=== PATIENT | female | born 1955 | race Caucasian/White ===

== ENCOUNTER → 2021-09-19 10:49 | Outpatient (CLI) | payer OTHER, SELFPAY ==
--- NOTE | 2021-09-19 | DI.MG.S_ITS ---
BILATERAL DIGITAL SCREENING MAMMOGRAM 3D/2D WITH CAD: 09/19/2021 CLINICAL: Routine screening. Personal history of left breast cancer. Family history of breast cancer. Comparison is made to exams dated: 07/07/2020 mammogram, 11/16/2019 mammogram, 11/11/2018 mammogram, and 10/25/2017 mammogram - outside facility. The tissue of both breasts is predominantly fatty. Current study was also evaluated with a Computer Aided Detection (CAD) system. No significant masses, calcifications, or other findings are seen in either breast. There has been no significant interval change. IMPRESSION: NEGATIVE There is no mammographic evidence of malignancy. A 1 year screening mammogram is recommended. This exam was interpreted at Station ID: [id number]. NOTE: For mammograms, a report in lay terms will be sent to the patient. Approximately 15% of breast malignancies will not be visualized mammographically. In the management of a palpable breast mass, a negative mammogram must not discourage biopsy of a clinically suspicious lesion. Electronically Signed By: Juan J Acosta M.D., jr/eloina:09/21/2021 11:04:01 letter sent: Normal Exam ACR BI-RADS Category 1: Negative 3341F
== END ==
PROVIDERS: PCP Family Medicine; Referring Provider Family Medicine; Visit Provider Family Medicine
DX: Z12.31 Encounter for screening mammogram for malignant neoplasm of breast (principal); Z80.3 Family history of malignant neoplasm of breast; Z85.3 Personal history of malignant neoplasm of breast
CPT/HCPCS: 77063; 77067

== ENCOUNTER → 2022-02-22 12:02 | Outpatient (CLI) | payer MEDICARE, OTHER, SELFPAY ==
[2022-02-22 19:15] LABS: Add Manual Diff / Slide Review NO; Basophils Absolute Auto 0 /uL (0-100); Basophils Percent Auto 0.8 % (0-2); Eosinophils Absolute Auto 100 /uL (0-450); Eosinophils Percent Auto 2.2 % (2-4); Hematocrit 37.8 % (36-46); Hemoglobin 12.4 g/dL (12.0-16.0); Lymphocytes Absolute Auto 2000 /uL (1100-4500); Lymphocytes Percent Auto 42.7 % (25-40); Mean Corpuscular HGB Conc 32.9 % (30-36); Mean Corpuscular Volume 94.3 fL (80-100); Monocytes Absolute Auto 400 /uL (0-900); Monocytes Percent Auto 8.6 % (3-14); Neutrophils Absolute Auto 2100 /uL (1500-7000); Neutrophils Percent Auto 45.7 % (50-75); Platelet Count 257 X10^3/uL (150-400); Red Blood Cell Count 4.01 X10^6/uL (4.0-5.2); White Blood Cell Count 4.6 X10^3/uL (4.5-11.0)
[2022-02-22 19:35] LABS: Alanine Aminotransferase 14 IU/L (<35); Albumin 4.7 g/dL (3.5-5.0); Albumin Globulin Ratio 1.5 (1.0-2.8); Alkaline Phosphatase 43 U/L (38-126); Aspartate Aminotransferase 25 IU/L (14-36); BUN Creatinine Ratio 27.7 (6-22); Bilirubin Total 0.6 mg/dL (0.2-1.3); Blood Urea Nitrogen 23 mg/dL (7-17); Calcium 9.9 mg/dL (8.4-10.2); Carbon Dioxide 29 mmol/L (22-32); Chloride 102 mmol/L (98-107); Cholesterol 241 mg/dL (140-199); Estimated Glomerular Filt Rate > 60 mL/min (>60); Globulin 3.1 g/dL (1.7-4.1); Glucose 87 mg/dL (80-110); HDL Cholesterol 91 mg/dL (40-60); HEMOLYSIS 27 (0-50); LDL Cholesterol Calculated 131 mg/dL (<100); Potassium 4.5 mmol/L (3.4-5.1); Sodium 138 mmol/L (137-145); Total Protein 7.8 g/dL (6.3-8.2); Triglycerides 95 mg/dL (35-150)
== END ==
PROVIDERS: PCP Family Medicine; Visit Provider Family Medicine
DX: Z13.6 Encounter for screening for cardiovascular disorders (principal); M54.50 Low back pain, unspecified; M85.80 Other specified disorders of bone density and structure, unspecified site; Z78.0 Asymptomatic menopausal state; G89.29 Other chronic pain; Z13.0 Encounter for screening for diseases of the blood and blood-forming organs and certain disorders involving the immune mechanism
CPT/HCPCS: 80053; 80061; 85025

== ENCOUNTER → 2022-05-13 11:08 | Outpatient (CLI) | payer MEDICARE, OTHER, SELFPAY | PROVIDERS: PCP Family Medicine; Referring Provider Family Medicine; Visit Provider Family Medicine | DX: Z13.820 Encounter for screening for osteoporosis (principal); M85.89 Other specified disorders of bone density and structure, multiple sites; Z78.0 Asymptomatic menopausal state; M54.50 Low back pain, unspecified; Z85.3 Personal history of malignant neoplasm of breast | CPT/HCPCS: 77080 ==

== ENCOUNTER → 2022-07-09 10:07 | Outpatient (CLI) | payer MEDICARE, OTHER, SELFPAY ==
--- NOTE | 2022-07-09 10:07 | DI.MRI.S_ITS ---
PROCEDURE: MR LUMBAR SPINE WO CON INDICATIONS: lumbar pain no response to pt etc TECHNIQUE: Noncontrast sagittal T1 spin echo and T2 fast echo, coronal T2, sagittal STIR, and T2 fast spin echo through the lumbar spine. COMPARISON: None. FINDINGS: Image quality: Excellent. Alignment and Curvature: No plain films are available for comparison, for numbering purposes. Thus, for the purposes of this examination, 5 lumbar type vertebral bodies will be presumed, as denoted on the montage panel. This should be confirmed and correlated with plain films, prior to any lumbar spinal intervention. Mild diffuse leftward curvature of the lower lumbar spine. 3 mm of retrolisthesis of L3 on L4. Bone Marrow: Marrow is of normal overall signal. No acute vertebral body compression fractures. Mild reactive signal throughout the endplates of the lumbar spine. Mild degenerative marrow edema adjacent to the L3-L4 and L4-L5 facet joints bilaterally. Spinal Cord: Conus medullaris terminates at the upper L2 level. Visualized cord demonstrates normal signal and size. Paraspinous Soft Tissues: No paravertebral masses. T12-L1: Normal appearance. L1-L2: Normal appearance. L2-L3: Mild disc desiccation and diffuse disc bulge. Mild facet and ligamentum flavum hypertrophy. Mild epidural lipomatosis. Mild canal stenosis. Mild bilateral foraminal stenosis. L3-L4: Mild disc height loss and desiccation. Mild diffuse disc bulge. Mild facet and ligamentum flavum hypertrophy. Mild epidural lipomatosis. Mild canal stenosis. Mild bilateral foraminal stenosis. L4-L5: Mild disc desiccation and disc height loss. Mild diffuse disc bulge. Mild facet and ligamentum flavum hypertrophy. Mild epidural lipomatosis. Mild canal stenosis. Mild bilateral foraminal stenosis. L5-S1: Mild disc desiccation and diffuse disc bulge. Mild bilateral facet hypertrophy. No significant canal stenosis. Mild bilateral foraminal stenosis. IMPRESSION: 1. Multilevel degenerative disc and facet disease, as well as ligamentum flavum hypertrophy and epidural lipomatosis. 2. Mild multilevel canal and foraminal stenoses. No neural impingement. 3. 5 lumbar type vertebral bodies were presumed for the current report. Plain films of the lumbar spine are recommended for confirmation, prior to any lumbar spinal intervention. Dictated by: Perry Barber M.D. on 07/09/2022 at 11:40 Transcribed by: WICHO on 07/09/2022 at 11:42 Approved by: Perry Barber M.D. on 07/09/2022 at 15:07
== END ==
PROVIDERS: PCP Family Medicine; Referring Provider Family Medicine; Visit Provider Family Medicine
DX: M51.36 Other intervertebral disc degeneration, lumbar region (principal); M51.37 Other intervertebral disc degeneration, lumbosacral region; M48.061 Spinal stenosis, lumbar region without neurogenic claudication; M48.07 Spinal stenosis, lumbosacral region; G89.29 Other chronic pain
CPT/HCPCS: 72148

== ENCOUNTER → 2022-09-21 14:04 | Outpatient (CLI) | payer MEDICARE, OTHER, SELFPAY ==
--- NOTE | 2022-09-21 14:07 | DI.RAD.S_ITS ---
PROCEDURE: XR LUMBAR SPINE MIN 4V INDICATIONS: low back pain TECHNIQUE: 5 views of the lumbar spine were acquired, including bilateral oblique views. COMPARISON: None. FINDINGS: Bones: 5 nonrib-bearing vertebrae are present. There is mild leftward curvature of the lumbar spine centered at L4. There is otherwise normal bony alignment. No vertebral body compression fractures. No suspicious bony lesions. Soft tissues: Overlying bowel gas pattern is normal. No suspicious soft tissue calcifications. Oblique images: No pars defects. IMPRESSION: No spondylolysis or spondylolisthesis. Dictated by: Kaur Way M.D. on 09/21/2022 at 15:48 Approved by: aKur Way M.D. on 09/21/2022 at 15:49
== END ==
PROVIDERS: PCP Family Medicine; Referring Provider Anesthesiology; Visit Provider Anesthesiology
DX: M47.816 Spondylosis without myelopathy or radiculopathy, lumbar region (principal); M54.50 Low back pain, unspecified; G89.29 Other chronic pain
CPT/HCPCS: 72110; 99214

== ENCOUNTER → 2022-10-02 10:33 | Outpatient (CLI) | payer MEDICARE, OTHER, SELFPAY ==
--- NOTE | 2022-10-02 10:36 | DI.MG.S_ITS ---
BILATERAL DIGITAL SCREENING MAMMOGRAM 3D/2D WITH CAD: 10/02/2022 CLINICAL: Routine screening. Personal history of left breast cancer. Family history of breast cancer. Comparison is made to exams dated: 09/19/2021 mammogram - [facility], 07/07/2020 mammogram, 10/25/2017 mammogram, and 11/11/2018 mammogram - outside facility. Both breasts are heterogeneously dense, which may obscure small masses (category c / 51-75% glandular tissue). Current study was also evaluated with a Computer Aided Detection (CAD) system. There are benign post operative findings in the left breast. No significant masses, calcifications, or other findings are seen in either breast. There has been no significant interval change. IMPRESSION: BENIGN There is no mammographic evidence of malignancy. A 1 year screening mammogram is recommended. This exam was interpreted at Station ID: [id number]. NOTE: For mammograms, a report in lay terms will be sent to the patient. Approximately 15% of breast malignancies will not be visualized mammographically. In the management of a palpable breast mass, a negative mammogram must not discourage biopsy of a clinically suspicious lesion. Electronically Signed By: Carroll napier/eloina:10/04/2022 08:06:17 letter sent: Normal Exam ACR BI-RADS Category 2: Benign Finding(s) 3342F
== END ==
PROVIDERS: PCP Family Medicine; Referring Provider Family Medicine; Visit Provider Family Medicine
DX: Z12.31 Encounter for screening mammogram for malignant neoplasm of breast (principal); Z85.3 Personal history of malignant neoplasm of breast; Z80.3 Family history of malignant neoplasm of breast
CPT/HCPCS: 77063; 77067

== ENCOUNTER → 2023-10-20 12:10 | Outpatient (CLI) | payer MEDICARE, OTHER, SELFPAY ==
--- NOTE | 2023-10-20 12:11 | DI.MG.S_ITS ---
BILATERAL DIGITAL SCREENING MAMMOGRAM 3D/2D WITH CAD: 10/20/2023 CLINICAL: Routine screening. Personal history of left breast cancer. Family history of breast cancer. Comparison is made to exams dated: 10/02/2022 mammogram, 09/19/2021 mammogram - [facility], and 07/07/2020 mammogram - outside facility. Both breasts are heterogeneously dense, which may obscure small masses (category c / 51-75% glandular tissue). Current study was also evaluated with a Computer Aided Detection (CAD) system. There are benign post operative findings in the left breast. There is an asymmetry in the left breast posterior depth upper region seen on the mediolateral oblique view only. No other significant masses, calcifications, or other findings are seen in either breast. IMPRESSION: INCOMPLETE: NEEDS ADDITIONAL IMAGING EVALUATION Left breast upper posterior asymmetry seen on MLO view only. A diagnostic mammogram and ultrasound is recommended. This exam was interpreted at Station ID: [id number]. NOTE: For mammograms, a report in lay terms will be sent to the patient. Approximately 15% of breast malignancies will not be visualized mammographically. In the management of a palpable breast mass, a negative mammogram must not discourage biopsy of a clinically suspicious lesion. Electronically Signed By: Antonella Garay M.D., PH.D eb/:10/20/2023 15:30:13 letter sent: Additional Imaging Needed ACR BI-RADS Category 0: Incomplete 3340F
== END ==
PROVIDERS: PCP Family Medicine; Referring Provider Family Medicine; Visit Provider Family Medicine
DX: Z12.31 Encounter for screening mammogram for malignant neoplasm of breast (principal); Z85.3 Personal history of malignant neoplasm of breast; Z80.3 Family history of malignant neoplasm of breast
CPT/HCPCS: 77063; 77067

== ENCOUNTER → 2023-11-14 08:50 | Outpatient (CLI) | payer MEDICARE, OTHER, SELFPAY ==
--- NOTE | 2023-11-14 | DI.MG.S_ITS ---
UNILATERAL LEFT DIGITAL DIAGNOSTIC MAMMOGRAM 3D/2D WITH ADDITIONAL VIEWS: 11/14/2023 CLINICAL: Additional evaluation requested from prior study. Comparison is made to exams dated: 10/20/2023 mammogram, 10/02/2022 mammogram, and 09/19/2021 mammogram - [facility]. The left breast is heterogeneously dense, which may obscure small masses (category c / 51-75% glandular tissue). There is a focal asymmetry in the left breast at 3 o'clock posterior depth. This is seen in additional views. No other significant masses or calcifications are seen in the breast. IMPRESSION: INCOMPLETE: NEEDS ADDITIONAL IMAGING EVALUATION The focal asymmetry in the left breast is indeterminate. A targeted ultrasound of the left breast is recommended and will be performed immediately following this exam. This exam was interpreted at Station ID: [id number]. NOTE: For mammograms, a report in lay terms will be sent to the patient. Approximately 15% of breast malignancies will not be visualized mammographically. In the management of a palpable breast mass, a negative mammogram must not discourage biopsy of a clinically suspicious lesion. Electronically Signed By: Kaur Way M.D. lk/:11/14/2023 09:59:20 ACR BI-RADS Category 0: Incomplete 3340F
--- NOTE | 2023-11-14 08:51 | DI.US.S_ITS ---
LIMITED ULTRASOUND OF LEFT BREAST: 11/14/2023 CLINICAL: Patient returns today to evaluate a focal asymmetry in the left breast. Comparison is made to exams dated: 11/14/2023 mammogram, 10/20/2023 mammogram, 10/02/2022 mammogram, 09/19/2021 mammogram - [facility], 07/07/2020 mammogram, and 11/16/2019 mammogram - outside facility. Color flow and real-time ultrasound of the left breast 2 o'clock region were performed on the areas of interest. Rushing scale images of the real-time examination were reviewed. There is a 0.7 cm x 0.6 cm x 0.6 cm irregular mass in the left breast at 3 o'clock posterior depth. This irregular mass is hypoechoic. This correlates with mammography findings. The left axilla was interogated and normal appearing lymph nodes are visualized. IMPRESSION: SUSPICIOUS OF MALIGNANCY No left axillary adenopathy. The 0.7 cm x 0.6 cm x 0.6 cm irregular mass in the left breast is at a moderate suspicion for malignancy. A vacuum assisted ultrasound biopsy is recommended. This exam was interpreted at Station ID: [id number]. SUMMARY: This was discussed with the patient by the radiologist at the time of the exam. Electronically Signed By: Kaur tinsley/:11/17/2023 09:57:38 Entry: - 11/17/2023 09:57:38 letter sent: Biopsy Required Ultrasound BI-RADS: 4b Moderate suspicion of malignancy
== END ==
LOC: MAMMO 08:50
PROVIDERS: PCP Family Medicine; Referring Provider Family Medicine; Visit Provider Family Medicine
DX: R92.8 Other abnormal and inconclusive findings on diagnostic imaging of breast (principal); N63.25 Unspecified lump in the left breast, overlapping quadrants; Z85.3 Personal history of malignant neoplasm of breast
CPT/HCPCS: 76642; 77065; G0279

== ENCOUNTER → 2023-11-24 11:08 | Outpatient (CLI) | payer MEDICARE, OTHER, SELFPAY ==
--- NOTE | 2023-11-24 | PATH_ITS ---
[facility] Accession Number: [id number] No. of containers..01 Tissue . 01 Material submitted: . breast - LEFT BREAST MASS 2:00 7 CM FN . 01 Diagnosis: A. Left Breast Mass, 2 o'clock, 7 cm from the Nipple, Biopsy: Atypical apocrine intraductal proliferation (see comment). . COMMENT: The biopsy consists of scant ducts in association with inflammatory infiltrate. A multifocal intraductal apocrine proliferation is seen with mild cytologic atypia but which demonstrates an incongruous pattern of IHC staining (lack of definite myoepithelial cell staining and diffuse positivity for CK5/6). Interpretation is limited by the scant lesional tissue. The differential diagnosis includes atypical apocrine metaplasia (which may show loss or diminished myoepithelial cell staining, see reference below) versus a partially sampled DCIS/neoplastic proliferation. Excision is advised for definitive categorization. . Reference: Carla et al Diminished number or complete loss of myoepithelial cells associated with metaplastic and neoplastic apocrine lesions of the breast Am J Surg Pathol 2011;35:202-211 MRV 12/01/20230 Local . 01 Electronically signed: . Aylin Hodgson MD, Pathologist NPI- [id number] . 01 Gross description: . Received is one formalin-filled container labeled with the patient's name and designated left breast mass 2 o'clock 7 cm FN. The specimen is received with plastic filter in container, sample loose in container, and consists of multiple fragments of yellow-norton soft tissue which range in size from 0.1 x 0.1 x 0.1 cm to 0.5 x 0.3 x 0.3 cm. All fragments are totally submitted in cassette A1. Possible collection date and time per requisition is 11/24/2023 at 1311 hours, total fixation time approximately 14 hours. ([id number]) /KARIN 11/25/2023 0516 Local . 01 Microscopic: . A panel of immunostains is performed on block A1 in order to evaluate the apocrine intraductal proliferation, with appropriately staining external controls. The following is the immunoprofile: . P63: Diminished or completely lost. Myosin: Diminished or completely lost. Estrogen receptor: Negative (with positive internal control). CK5/6: Diffusely and strongly positive. GCDFP15: Negative. . * This test was developed and its performance characteristics determined by [employer]. It has not been cleared or approved by the U.S. Food and Drug Administration. The FDA has determined that such clearance or approval is not necessary. This test is used for clinical purposes. It should not be regarded as investigational or for research. . 01 Pathologist provided ICD-10: N63.20 . 01 CPT . 002653, P03170, A78079 Specimen Comment: A courtesy copy of this report has been sent to [phone] Performed at: 01 [facility] [address] [place] [address], [place], [place] [id number] MD Kendrick Lloyd MD Phone: [phone]
--- NOTE | 2023-11-24 | DI.MG.S_ITS ---
UNILATERAL LEFT DIGITAL DIAGNOSTIC MAMMOGRAM 3D/2D - LEFT BREAST POST-PROCEDURE IMAGING FOR MARKER PLACEMENT: 11/24/2023 CLINICAL: Post left breast ultrasound biopsy, clip placment imaging. Comparison is made to exams dated: 11/14/2023 mammogram, 10/20/2023 mammogram, 10/02/2022 mammogram, 09/19/2021 mammogram, 11/14/2023 ultrasound, and 11/24/2023 ultrasound biopsy - [facility]. The left breast is heterogeneously dense, which may obscure small masses (category c / 51-75% glandular tissue). There is a marker clip in the appropriate position in the left breast at 2 o'clock posterior depth. This marker clip placement is at the biopsy site. IMPRESSION: POST PROCEDURE MAMMOGRAM FOR MARKER PLACEMENT There was a successful marker clip placement in the left breast posterior depth. This exam was interpreted at Station ID: [id number]. NOTE: For mammograms, a report in lay terms will be sent to the patient. Approximately 15% of breast malignancies will not be visualized mammographically. In the management of a palpable breast mass, a negative mammogram must not discourage biopsy of a clinically suspicious lesion. Electronically Signed By: Mj rhoades/eloina:11/25/2023 09:54:15 ACR BI-RADS Category Post-procedure mammogram for marker placement
--- NOTE | 2023-11-24 11:10 | DI.US.S_ITS ---
ULTRASOUND GUIDED BIOPSY LEFT BREAST USING VACUUM DEVICE WITH MARKING DEVICE INSERTED AND POST DIGITAL MAMMOGRAPHIC IMAGIN11/24/2023 CLINICAL: Post left breast ultrasound biopsy, clip placement imaging. PATIENT CONSENT: Risks (minor bleeding, infection, vasovagal reaction and repeat procedure), benefits and alternatives were explained to the patient and written informed consent was obtained. Correlation is made to exams dated: 11/24/2023 mammogram, 11/14/2023 ultrasound, 11/14/2023 mammogram, 10/20/2023 mammogram, 10/02/2022 mammogram, and 09/19/2021 mammogram - [facility]. An ultrasound guided biopsy using real-time ultrasound was performed for the 0.7 cm x 0.6 cm x 0.6 cm mass located in the left breast at 2 o'clock posterior depth. This was described on the previous mammography and ultrasound reports. The skin was prepped in the usual manner. Local anesthetic was administered to the access site. A skin ita was made in the breast. The abnormality was approached from the lateral aspect. A 14 gauge biopsy needle was placed adjacent to the abnormality under ultrasound guidance. Once the needle was documented to be in the correct location, four specimens were obtained using a vacuum assisted device. A clip was inserted into the biopsy cavity. A sterile dressing was applied to the access site. Post procedure digital mammographic imaging demonstrates the location device at the targeted area. The specimens were sent to the laboratory for pathological analysis. IMPRESSION: ULTRASOUND GUIDED BIOPSY HIGH RISK BENIGN Ultrasound guided biopsy of the 0.7 cm x 0.6 cm x 0.6 cm mass in the left breast at 2 o'clock posterior depth was successful with no apparent post procedure complications. Pathology indicates high risk benign finding with atypia present - intraductal apocrine proliferation with cytologic atypia. Differential includes partially sampled DCIS or neoplasia. Pathology results are concordant with imaging findings. This is high risk benign. Consider excisional biopsy. This exam was interpreted at Station ID: [id number]. gab Wang M.D., M.D./:12/02/2023 08:52:41
== END ==
LOC: US 11:08
PROVIDERS: PCP Family Medicine; Referring Provider Family Medicine; Visit Provider Family Medicine
DX: R92.8 Other abnormal and inconclusive findings on diagnostic imaging of breast (principal); Z85.3 Personal history of malignant neoplasm of breast; N63.21 Unspecified lump in the left breast, upper outer quadrant
CPT/HCPCS: 19083; 77065

== ENCOUNTER → 2024-02-01 15:27 | Outpatient (CLI) | payer MEDICARE, OTHER, SELFPAY | PROVIDERS: PCP Family Medicine; Visit Provider Nurse Practitioner Adult Health | DX: R35.0 Frequency of micturition (principal) | CPT/HCPCS: 87086 ==

== ENCOUNTER 2024-09-25 12:13 | Outpatient (CLI) | payer MEDICARE, OTHER, SELFPAY ==
[2024-09-25] VITALS (10 sets, daily range): BP systolic 94–118; BP diastolic 51–68; PULSE 52–61; RESP 14–20; TEMP 36.4; O2SAT 98–100
--- NOTE | 2024-09-25 13:35 | DI.RAD.S_ITS ---
PROCEDURE: PAIN SI JOINT INJECTION INDICATIONS: coccydenia COMPARISON: None. FINDINGS/IMPRESSION: Fluoroscopic spot filming was performed to verify placement of spinal needles at the coccyx level(s), as labeled on the films. Appropriate location(s) of the needle tip(s) was confirmed by injection of iodinated contrast. Dictated by: Omaira Wesley M.D. on 09/25/2024 at 20:13 Approved by: Omaira Wesley M.D. on 09/25/2024 at 20:13
[2024-09-25] MEDS: MIDAZOLAM 2 MG/2 ML VIAL 1 MG IV ×2 (13:36→13:47)
[2024-09-25] MEDS: iopamidoL 15 ML VIAL 3 ML INJ (13:43)
[2024-09-25] MEDS: BUPIVACAINE 0.5% (PF) 10 ML VIAL 2 ML INJ (13:43)
[2024-09-25] MEDS: BETAMETHASONE 30 MG/5 ML MDV 12 MG INJ (13:43)
--- NOTE | 2024-09-25 13:57 | PM.PROC.IR.1 ---
Date/Time/Diagnoses Date of procedure: 09/25/24 Time of procedure: 13:57 Pre-procedure diagnosis: Coccydynia Procedure Notes Procedure: Fluoroscopically guided contrast controlled Coccyx Injection Indications: Coccydynia Physician: Ike Adamson Total Fluoroscopy time (seconds): 5 Total sedation minutes: 17 Procedure in detail & Post-procedure care: DESCRIPTION OF PROCEDURE Fluoroscopic guided, contrast controlled coccyx injection Following review of allergies and review of potential side effects and complications, including, but not necessarily limited to, infection, allergic reaction, local tissue breakdown, temporary as well as permanent nerve injury, paralysis, stroke and possible , the patient indicated that they understood and agreed to proceed. An informed consent was signed by the patient, witnessed by a nurse, and placed in the patient's chart. Additionally, other treatment options including modalities, medications, and physical therapy were reviewed with the patient. After review of previous anaesthesic history and IV conscious sedation the patient was deemed safe to proceed with today?s procedure with IV conscious sedation as ASA class II designation. Safety time-out was performed to confirm patient ID, procedure to be performed and site of procedure. IV sedation was accomplished with a combination of 2mg of Versed administered by the RN after DO order, titrated to patient comfort during the course of the procedure while the patient remained responsive to all verbal commands. In the prone position following sterile prep and drape of the pelvic region, the hyper lucency on in the inferior aspect of the coccyx joint was identified fluoroscopically the skin was anesthetized be a 25 gauge 1 eventual with approximately 2cc of 1% lidocaine solution. At this point, a 22 gauge 3inch spinal needle was atraumatically introduced and advanced under fluoroscopic guidance into the inferior aspect of the left sacroiliac joint. Following negative aspiration, approximately 0.3cc of Isovue-300 was injected confirming intra-articular placement without vascular uptake. Radiographic data, including multiple fluoroscopic views of the pelvis, reveals a spinal needle in the coccyx. Subsequent view show flow contrast tear superiorly and inferiorly within the joint capsule without vascular intrathecal uptake. At this point a total of 1cc or 0.5% Marcaine was combined with 1cc of 6mg of betamethasone was injected without incident. The patient tolerated the procedure well without signs or symptoms of complications prior to transfer to the recovery area for further monitoring. The patient was then transferred to the recovery area with a bur observed for an appropriate time after the injection. The patient reverted a vas score of 7 prior to the procedure and postprocedure vas of 1. POSTOP INSTRUCTIONS The patient was provided with a pain like to continue to record the patient's response to the target specific procedure prior to the patient's follow-up visit with the referring physician. Additionally, specific post injection care instructions and a contact number to our office were provided if concerns arise regarding the possible complications associated with procedure are suspected.
== END 2024-09-25 14:25 | disposition home or self-care (01) ==
PROVIDERS: PCP Family Medicine; Referring Provider Physical Medicine & Rehabilitation; Visit Provider Physical Medicine & Rehabilitation
DX: M53.3 Sacrococcygeal disorders, not elsewhere classified (principal)
CPT/HCPCS: 27096; 99152; J0702; J2250

== ENCOUNTER → 2024-11-06 10:19 | Outpatient (CLI) | payer MEDICARE, OTHER, SELFPAY ==
[2024-11-06 19:45] LABS: Alanine Aminotransferase 18 IU/L (<35); Albumin 4.4 g/dL (3.5-5.0); Albumin Globulin Ratio 1.6 (1.0-2.8); Alkaline Phosphatase 44 U/L (38-126); Aspartate Aminotransferase 30 IU/L (14-36); BUN Creatinine Ratio 19.8 (6-22); Bilirubin Total 0.5 mg/dL (0.2-1.3); Blood Urea Nitrogen 19 mg/dL (7-17); Calcium 9.8 mg/dL (8.4-10.2); Carbon Dioxide 30 mmol/L (22-32); Chloride 103 mmol/L (98-107); Estimated Glomerular Filt Rate > 60 mL/min (>60); Globulin 2.8 g/dL (1.7-4.1); Glucose 95 mg/dL (80-110); HEMOLYSIS < 15 (0-50); Sodium 136 mmol/L (137-145); Total Protein 7.2 g/dL (6.3-8.2)
== END ==
PROVIDERS: PCP Family Medicine; Visit Provider Physician Assistant Medical
DX: Z71.84 Encounter for health counseling related to travel (principal)
CPT/HCPCS: 80053

== ENCOUNTER 2024-12-28 09:50 | Day surgery (SDC) | payer MEDICARE, OTHER, SELFPAY ==
[2024-12-28] MEDS: LACTATED RINGERS 1,000 ML 100 ML IV (10:43)
[2024-12-28 10:45] VITALS: BP 118/69; PULSE 63; RESP 16; TEMP 36.3; O2SAT 96
--- NOTE | 2024-12-28 11:01 | P.HP_ITS ---
History of Present Illness History of Present Illness Date Patient Seen: 12/28/24 Time Patient Seen: 11:01 Chief complaint: Dx Colonoscopy w/poss bx Narrative: 68-year-old female with a past history of breast cancer had a genetic assay done which demonstrated 10% increased risk of colon cancer presents for screening. Her last colonoscopy was 5 years ago. She has not sure whether any polyps have been removed in the past. 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, lumbar region Encounter for screening mammogram for malignant neoplasm of breast Encounter for screening for malignant neoplasm of cervix Encounter for gynecological examination (general) (routine) with abnormal findings Social History Smoking Status: Never smoker alcohol intake: former Comment: history of breast cancer, per patient; abnormal genetic marker per patient Meds Home Medications and Allergies Home Medications Medication Instructions Recorded Confirmed Type triamcinolone acetonide 0.025 % 1 applic topical BEDTIME 03/19/21 11/06/24 History topical cream estradiol 0.01% (0.1 mg/gram) 1 g vaginal 3XW #42.5 grams 02/01/24 11/06/24 Rx vaginal cream (Estrace) benzonatate 100 mg capsule 100 mg PO TID PRN cough #60 caps 03/29/24 11/06/24 Rx fluocinonide 0.05 % topical 1 applic topical BID #60 mL 06/05/24 11/06/24 Rx solution denosumab 60 mg/mL subcutaneous 60 mg SUBCUT D2VAMCEG #1 mL 10/01/24 11/06/24 Rx syringe (Prolia) diazepam 10 mg tablet (Valium) 10 mg PO .COMPLEX #5 tabs 10/26/24 11/06/24 Rx ciprofloxacin HCl 500 mg tablet 500 mg PO BID travel diarrhea #14 11/06/24 11/06/24 Rx tabs nirmatrelvir 300 mg (150 mg See Rx Instructions PO .COMPLEX 11/07/24 Rx x2)-ritonavir 100 mg tablet,dose #30 ea pack (Paxlovid) sodium,potassium,mag sulfates 17.5 See Rx Instructions PO .COMPLEX 11/20/24 Rx gram-3.13 gram-1.6 gram oral soln #354 mL (Suprep Bowel Prep Kit) Allergies Allergy/AdvReac Type Severity Reaction Status Date / Time ibuprofen Allergy Mild Verified 12/28/24 10:18 Review of Systems Review of Systems ROS: Yes All systems reviewed with the patient and are negative except as otherwise documented Exam Vital Signs (past 8 hours): - 12/28/24 10:45 Temperature 97.4 F L Pulse Rate 63 Respiratory Rate 16 Blood Pressure 118/69 Pulse Oximetry 96 Oxygen Delivery Method Room Air Oxygen Delivery Method Room Air Narrative Exam Narrative: Gen: NAD, sitting comfortably in bed, appears well HEENT: Sclera are anicteric, head is normocephalic and atraumatic, trachea is midline. CV: RRR, no JVD Resp: clear to auscultation bilaterally, equal chest wall movement bilaterally Abd: soft, nontender, normoactive bowel sounds Ext: no edema, full range of motion Neuro: Cranial nerves II-XII grossly intact, no focal deficits Skin: No erythema or ecchymosis Assessment & Plan Assessment and plan (1) Colon cancer screening: Status: Acute Assessment & Plan narrative: Patient presents for colonoscopy Risks, benefits, alternatives to colonoscopy explained, including but not limited to bowel perforation or other serious complication requiring surgery at less than 1 in 5000 colonoscopies, abdominal pain, cramping or bleeding and less than 1% of colonoscopies, and the chances that we find a diagnosis that would require further intervention of about 2%. Patient agrees to proceed. Time-Based Coding :: [TOTAL MINUTES] spent with patient and on the chart (including review of chart, obtaining history, exam, reviewing outside data, placing orders, documenting exam and treatment plan, and counseling patient) on [DATE]. [employer] Document charge(s): No
[2024-12-28 11:23] VITALS: BP 103/60; PULSE 73; RESP 16; TEMP 36.1; O2SAT 97
--- NOTE | 2024-12-28 11:23 | PM.OP.COLON ---
Operative Date/Time/Diagnoses Date of procedure: 12/28/24 Time of procedure: 11:23 Pre-op diagnosis: Colon screening, moderate risk, heterozygous APC gene mutation Post-op diagnosis: same Procedure & Clinicians Study performed: Colonoscopy Same procedure as scheduled: Yes Indications: Colon screening Surgeon: Jesus Kelley Procedure Notes Procedure in detail: Time-out was performed. Mac was induced. Patient was placed in left lateral decubitus position. The perineum was inspected without any gross abnormality. Lubricated pediatric colonoscope was inserted and advanced to the cecum. The terminal ileum was intubated. The colonoscope was withdrawn slowly inspecting the circumference of the colon. Very small polyps may have been missed, prep quality was adequate. Retroflexed view of the rectum showed small, non prolapsed nonbleeding internal hemorrhoids. The scope was withdrawn the patient was taken to PACU in good condition. Scope withdrawal time: 6 Findings: internal hemorrhoids Specimen(s): none sent Complications: none Post-procedure Recommendations: Colonoscopy in 5 years (for moderate risk APC gene mutation (possible 2x increased risk colon cancer)) Follow up: as needed Disposition: PACU
[2024-12-28 11:28] VITALS: BP 99/62; PULSE 72; RESP 15; O2SAT 97
[2024-12-28 11:33] VITALS: BP 100/54; PULSE 79; RESP 17; O2SAT 98
[2024-12-28 11:41] VITALS: BP 101/51; PULSE 66; RESP 17; TEMP 36.1; O2SAT 100
== END 2024-12-28 12:15 | disposition home or self-care (01) ==
PROVIDERS: PCP Family Medicine; Referring Provider Surgery; Visit Provider Surgery
PROC: 0DJD8ZZ Inspection of Lower Intestinal Tract, Via Natural or Artificial Opening Endoscopic (ICD-10-PCS; CPT 45378; principal; 2024-12-28 11:15)
DX: Z12.11 Encounter for screening for malignant neoplasm of colon (principal); Z85.3 Personal history of malignant neoplasm of breast; Z15.09 Genetic susceptibility to other malignant neoplasm
CPT/HCPCS: G0121; J2704